=== PATIENT | female | born 1995 | race Hispanic/Latino ===

== ENCOUNTER 2021-07-21 11:06 | Day surgery (SDC) | payer OTHER ==
[2021-07-21] MEDS ORDERED: hydrALAZINE 20 MG/ML VIAL SLOW IVP PRN (12:21)
[2021-07-21 13:33] VITALS: BMI 27.4
[2021-07-21 13:55] LABS: #Eosinphils 0.1 10x3/uL (0.0-0.5); #Monocytes 0.6 10x3/uL (0.0-1.1); #Neutrophils 7.3 10x3/uL (1.5-8.4); %Basophils 0.2 % (0.0-2.0); %Eosinophils 0.8 % (0.0-6.0); %Lymphocytes 16.2 % (18.0-47.0); %Monocytes 6.6 % (0.0-10.0); %Neutrophils 75.8 % (40.0-75.0); Hemoglobin 11.3 g/dL (12.0-15.5); Mean Corpuscular HGB CONC 32.5 g/dL (32.0-36.0); Mean Corpuscular Hemoglobin 26.1 pg (27.0-33.0); Mean Corpuscular Volume 80.4 fl (81.6-98.3); Mean Platelet Volume 10.4 fl (7.4-10.4); Platelet Count 311 10x3/uL (150-450); RBC Distribution Width 13.9 % (11.5-14.5); Red Blood Cell (RBC) Count 4.33 10x6/uL (3.90-5.03); White Blood Cell (WBC) Count 9.6 10x3/uL (3.5-10.5)
[2021-07-21 14:08] LABS: Creatinine, Urine 60.35 mg/dL (47-110); Protein, Urine Random Quant Less than 10 mg/dL (1-14)
[2021-07-21 14:48] LABS: ALT (SGPT) 9 U/L (8-55); AST (SGOT) 15 U/L (5-34); Alkaline Phosphatase 197 U/L (40-110); Anion Gap 11 mmol/L (10-20); BUN (Urea Nitrogen) 11 mg/dL (7.0-18.7); Bilirubin, Total 0.3 mg/dL (0.2-1.2); Calc. Creatinine Clearance 211 mL/min (70-130); Calcium 8.5 mg/dL (7.8-10.44); Carbon Dioxide 21 mmol/L (22-29); Chloride 108 mmol/L (98-107); Globulin 3.3 g/dL (2.4-3.5); Glucose 79 mg/dL (70-105); HIV (1/2) Antibody/Antigen Non-Reactive (NonReactive); HIV 1/2 INDEX 0.09 S/CO (<1.00); Potassium 4.6 mmol/L (3.5-5.1); Protein, Total 6.3 g/dL (6.0-8.3); Sodium 135 mmol/L (136-145); Syphilis Antibody Nonreactive (Nonreactive); Uric Acid 3.4 mg/dL (2.6-6.0)
== END 2021-07-21 15:51 | disposition home or self-care (01) ==
LOC: CSHLD/OP 11:06
PROVIDERS: ATTEND Family Medicine
DX: O99.891 Other specified diseases and conditions complicating pregnancy (principal); R03.0 Elevated blood-pressure reading, without diagnosis of hypertension; O24.410 Gestational diabetes mellitus in pregnancy, diet controlled; O36.8130 Decreased fetal movements, third trimester, not applicable or unspecified; O34.03 Maternal care for unspecified congenital malformation of uterus, third trimester; Q51.3 Bicornate uterus; Z3A.37 37 weeks gestation of pregnancy
CPT/HCPCS: 76819; 80053; 82570; 84156; 84550; 85025; 86780; 87389

== ENCOUNTER 2021-07-23 02:16 | Inpatient (IN) | payer MEDICAID, OTHER ==
[2021-07-23] MEDS ORDERED: hydrALAZINE 20 MG/ML VIAL SLOW IVP PRN (04:12)
[2021-07-23] MEDS ORDERED: Acetaminophen 500 MG TAB PO PRN (04:29)
[2021-07-23] MEDS ORDERED: Ondansetron PF 4 MG/2 ML Vial IVP PRN ×3 (04:29→11:43)
[2021-07-23] MEDS ORDERED: Promethazine HCl 25 MG/ML VIAL IM PRN ×2 (04:29→05:56)
[2021-07-23] MEDS ORDERED: Carboprost 250 MCG/ML AMP IM PRN (04:29)
[2021-07-23] MEDS ORDERED: Methylergonovine 0.2 MG/ML VIAL IM PRN ×2 (04:29→11:43)
[2021-07-23] MEDS ORDERED: Misoprostol 200 MCG TAB PR PRN (04:29)
[2021-07-23] MEDS ORDERED: Lidocaine 1% (PF) 30 ML VIAL SC PRN (04:29)
[2021-07-23] MEDS ORDERED: Ibuprofen 800 MG TAB PO PRN (04:29)
[2021-07-23] MEDS ORDERED: NS w/ Oxytocin 30 units 500 ML IV SCH ×3 (04:30→11:43)
[2021-07-23] MEDS ORDERED: Lactated Ringer's 1,000 ML IV SCH (04:30)
[2021-07-23] MEDS ORDERED: Fentanyl 2 mcg/Bup 0.1% Cadd 100 ML ONE (04:58)
[2021-07-23 05:24] LABS: Hemoglobin 12.2 g/dL (12.0-15.5); Mean Corpuscular HGB CONC 32.4 g/dL (32.0-36.0); Mean Corpuscular Hemoglobin 25.9 pg (27.0-33.0); Mean Platelet Volume 10.2 fl (7.4-10.4); Platelet Count 309 10x3/uL (150-450); RBC Distribution Width 13.7 % (11.5-14.5); Red Blood Cell (RBC) Count 4.71 10x6/uL (3.90-5.03); White Blood Cell (WBC) Count 11.8 10x3/uL (3.5-10.5)
[2021-07-23 05:25] LABS: Syphilis Antibody Nonreactive (Nonreactive); Syphilis Antibody Index 0.11 S/CO (<1.00 Non-Reactive)
[2021-07-23 05:26] LABS: Hep B Surf Ag Non-Reactive S/CO (NonReactive)
[2021-07-23 05:32] VITALS: BMI 31.2
[2021-07-23 05:49] LABS: HBSAg Index 0.17 S/CO (0-0.99)
[2021-07-23] MEDS ORDERED: diphenhydrAMINE 50 MG/ML VIAL IVP PRN (05:56)
[2021-07-23] MEDS ORDERED: ePHEDrine Sulfate 50 MG/10 ML VIAL SLOW IVP PRN (05:56)
[2021-07-23] MEDS ORDERED: Hydrocerin (Eucerin) Cream 120 gm Jar TOP PRN (05:56)
[2021-07-23] MEDS ORDERED: Lactated Ringer's 500 ML IV PRN (05:56)
[2021-07-23] MEDS ORDERED: Naloxone HCl 0.4 mg/ml Vial IVP PRN ×2 (05:56)
[2021-07-23] MEDS ORDERED: Acetaminophen 325 MG TAB PO PRN (05:56)
[2021-07-23] MEDS ORDERED: Communication Order-Pharmacy FS SCH (06:00)
[2021-07-23] MEDS ORDERED: Fentanyl 2 mcg/Bupivacaine 0.1% Cassette 100 ML EPIDURAL SCH (06:00)
[2021-07-23 07:39] LABS: HIV (1/2) Antibody/Antigen Non-Reactive (NonReactive); HIV 1/2 INDEX 0.14 S/CO (<1.00)
[2021-07-23] MEDS ORDERED: Bupivacaine/Epinephrine 0.25% 30 ML VIAL ONE (08:00)
[2021-07-23] MEDS ORDERED: Milk Of Magnesia 30 ML UDCUP PO PRN (11:43)
[2021-07-23] MEDS ORDERED: Bisacodyl 10 MG SUPP PR PRN (11:43)
[2021-07-23] MEDS ORDERED: Boostrix 0.5 ML (Tdap) VIAL IM ONE (11:43)
[2021-07-23] MEDS ORDERED: Benzocaine-Menthol 82.5 ML CAN TOP PRN (11:43)
[2021-07-23] MEDS ORDERED: HYDROcodone/Acetaminophen 5/325 mg Tablet PO PRN (11:43)
[2021-07-23] MEDS ORDERED: Lanolin Ointment 7 GM TUBE TOP PRN (11:43)
[2021-07-23] MEDS ORDERED: Preparation H Ointment 28 GM TUBE PR PRN (11:43)
[2021-07-23] MEDS ORDERED: diphenhydrAMINE 25 MG CAP PO PRN (11:43)
[2021-07-23] MEDS ORDERED: Misoprostol 200 MCG TAB VAG PRN (11:43)
[2021-07-23] MEDS: Docusate 100 MG CAP PO SCH ×2 (13:31→21:16)
[2021-07-23] MEDS: Ferrous Sulfate 325 MG TAB PO SCH ×2 (13:31→16:53)
[2021-07-23] MEDS: Ibuprofen 800 MG TAB PO SCH ×3 (13:31→21:16)
[2021-07-23] MEDS: Prenatal Vitamin 1 TAB PO SCH (13:32)
[2021-07-23 15:30] LABS: SARS-CoV-2 PCR by NAA Not Detected (NotDetected)
[2021-07-24] MEDS: Ibuprofen 800 MG TAB PO SCH ×3 (05:19→20:37)
[2021-07-24] MEDS: Ferrous Sulfate 325 MG TAB PO SCH ×2 (08:34→14:00)
[2021-07-24] MEDS: Docusate 100 MG CAP PO SCH ×2 (08:34→20:37)
[2021-07-24] MEDS: Prenatal Vitamin 1 TAB PO SCH (08:34)
[2021-07-25] MEDS: Ibuprofen 800 MG TAB PO SCH (05:32)
[2021-07-25] MEDS: Ferrous Sulfate 325 MG TAB PO SCH (08:03)
[2021-07-25 09:34] VITALS: BP 124/78; TEMP 97.6
[2021-07-25] MEDS: Docusate 100 MG CAP PO SCH (09:40)
[2021-07-25] MEDS: Prenatal Vitamin 1 TAB PO SCH (09:40)
== END 2021-07-25 13:56 | disposition home or self-care (01) | DRG 807 ==
LOC: CSHLD/OP 02:16 → CSHLD 04:28 → CSHPP 12:00
PROVIDERS: ADMIT Obstetrics & Gynecology; ATTEND Obstetrics & Gynecology
PROC: 10E0XZZ Delivery of Products of Conception, External Approach (ICD-10-PCS; principal; 2021-07-23)
PROC: 3E0334Z Introduction of Serum, Toxoid and Vaccine into Peripheral Vein, Percutaneous Approach (ICD-10-PCS; 2021-07-23)
DX: O24.429 Gestational diabetes mellitus in childbirth, unspecified control (principal); Z37.0 Single live birth; Z3A.38 38 weeks gestation of pregnancy; Z79.899 Other long term (current) drug therapy; Z67.41 Type O blood, Rh negative
CPT/HCPCS: 36415; 36416; 51702; 85027; 85461; 86780; 86850; 86900; 86901; 87340; 87389; 90384; 96372; 99285; J2590; U0003; U0005

== ENCOUNTER 2022-02-23 13:06 | Inpatient (IN) | payer MEDICAID, OTHER, SELFPAY ==
[2022-02-23] MEDS ORDERED: Acetaminophen 325 MG TAB PO PRN (14:17)
[2022-02-23] MEDS ORDERED: Ondansetron ODT 4 MG TAB PO PRN (14:37)
[2022-02-23] MEDS ORDERED: hydrOXYzine 10 MG TAB PO PRN (14:37)
[2022-02-23 14:45] LABS: #Eosinphils 0.1 10x3/uL (0.0-0.5); #Monocytes 0.6 10x3/uL (0.0-1.1); #Neutrophils 6.8 10x3/uL (1.5-8.4); %Basophils 0.2 % (0.0-2.0); %Eosinophils 1.2 % (0.0-6.0); %Lymphocytes 17.1 % (18.0-47.0); %Monocytes 6.5 % (0.0-10.0); %Neutrophils 74.8 % (40.0-75.0); Mean Corpuscular Hemoglobin 26.2 pg (27.0-33.0); Mean Corpuscular Volume 77.1 fl (81.6-98.3); Mean Platelet Volume 10.1 fl (7.4-10.4); Platelet Count 273 10x3/uL (150-450); RBC Distribution Width 14.4 % (11.5-14.5); Red Blood Cell (RBC) Count 4.58 10x6/uL (3.90-5.03); White Blood Cell (WBC) Count 9.1 10x3/uL (3.5-10.5)
[2022-02-23 14:50] VITALS: BMI 26.2
[2022-02-23 15:02] LABS: ALT (SGPT) 13 U/L (8-55); AST (SGOT) 13 U/L (5-34); Albumin 3.3 g/dL (3.5-5.0); Alkaline Phosphatase 201 U/L (40-110); Anion Gap 11 mmol/L (10-20); BUN (Urea Nitrogen) 5 mg/dL (7.0-18.7); Bilirubin, Total 0.3 mg/dL (0.2-1.2); Calc. Creatinine Clearance 200 mL/min (70-130); Calcium 8.5 mg/dL (7.8-10.44); Carbon Dioxide 24 mmol/L (22-29); Chloride 106 mmol/L (98-107); Estimated GFR 137; Globulin 3.2 g/dL (2.4-3.5); Glucose 93 mg/dL (70-105); Potassium 4.2 mmol/L (3.5-5.1); Protein, Total 6.5 g/dL (6.0-8.3); Sodium 137 mmol/L (136-145)
[2022-02-23 15:32] LABS: Magnesium 1.6 mg/dL (1.6-2.6)
[2022-02-23 15:37] LABS: Troponin I Less than 0.010 ng/mL (< 0.028)
[2022-02-23 15:50] LABS: Free T4 (Free Thyroxine) 2.82 ng/dL (0.70-1.48); Thyroid Stimulating Hormone Less than 0.0025 uIU/mL (0.35-4.94)
[2022-02-23] MEDS ORDERED: Magnesium Oxide 400 MG TAB PO SCH (17:30)
[2022-02-23 17:48] LABS: Creatinine, Urine 60.2 mg/dL (47-110)
[2022-02-23 19:27] LABS: Amphetamine Not Detected (NotDetected); Barbiturates Screen Not Detected (NotDetected); Benzodiazepine Screen Not Detected (NotDetected); Cocaine Metabolite Screen Not Detected (NotDetected); Methadone Not Detected (NotDetected); Methamphetamine Not Detected (NotDetected); Opiate Screen Not Detected (NotDetected); Oxycodone Screen Not Detected (NotDetected); Phencyclidine (PCP) Not Detected (NotDetected); THC/Cannabinoid Screen Not Detected (NotDetected); Tricyclic Screen Not Detected (NotDetected)
[2022-02-23] MEDS: Methimazole 5 MG TAB PO SCH (20:51)
[2022-02-23] MEDS ORDERED: Metoprolol Tartrate 25 MG TAB PO SCH (23:59)
[2022-02-24] MEDS ORDERED: Metoprolol Tartrate 25 MG TAB PO SCH (00:15)
[2022-02-24 04:28] LABS: T4 28.7 ug/dL (4.87-11.72)
[2022-02-24] MEDS ORDERED: hydrOXYzine 25 MG TAB PO PRN ×2 (06:15)
[2022-02-24] MEDS ORDERED: Magnesium Oxide 400 MG TAB PO SCH (09:00)
[2022-02-24] MEDS: Prenatal Vitamin 1 TAB PO SCH (09:03)
[2022-02-24] MEDS: Aspirin 81 mg Enteric Coated Tablet PO SCH (09:03)
[2022-02-24] MEDS: Methimazole 5 MG TAB PO SCH (09:03)
[2022-02-24] MEDS ORDERED: Methimazole 5 MG TAB PO SCH (10:30)
[2022-02-24] MEDS ORDERED: hydrOXYzine 25 MG TAB PO SCH (10:30)
[2022-02-24 11:35] LABS: Bilirubin Neg (Negative); Blood, Urine 10 (Negative); Clarity Clear (Clear); Glucose, Urine (Dipstick) Normal (Negative); Ketone, Urine Negative (Negative); Leukocyte Negative (Negative); Nitrite Negative (Negative); Protein, Urine (Dipstick) Negative (Neg-Trace); Specific Gravity, Urine 1.015 (1.002-1.036); Urobilinogen Normal mg/dL (Less than 2); pH, Urine 6.5 (5.0-9.0)
[2022-02-24 11:42] LABS: Bacteria/HPF None Seen HPF (None Seen); RBC/HPF 0-3 HPF (0-3); Squamous Epithelial 0-3 HPF (0-3); Urine Culture Reflex No No; WBC/HPF 0-3 HPF (0-3)
[2022-02-24 11:44] LABS: Anion Gap 11 mmol/L (10-20); BUN (Urea Nitrogen) 6 mg/dL (7.0-18.7); Calc. Creatinine Clearance 204 mL/min (70-130); Calcium 9.1 mg/dL (7.8-10.44); Carbon Dioxide 24 mmol/L (22-29); Chloride 105 mmol/L (98-107); Estimated GFR 138; Glucose 115 mg/dL (70-105); Magnesium 1.5 mg/dL (1.6-2.6); Potassium 3.9 mmol/L (3.5-5.1); Sodium 136 mmol/L (136-145)
[2022-02-24] MEDS ORDERED: Lorazepam 2 MG/ML VIAL SLOW IVP SCH (13:30)
[2022-02-24] MEDS: Magnesium Oxide 400 MG TAB PO SCH ×2 (13:48→20:49)
[2022-02-24 18:49] LABS: Hemoglobin A1c 4.9 % (4.0-6.0)
[2022-02-24] MEDS ORDERED: Labetalol HCl 100 MG/20 ML VIAL SLOW IVP SCH (19:00)
[2022-02-24] MEDS ORDERED: Metoprolol Tartrate 50 MG TAB PO SCH (21:00)
[2022-02-25 05:08] LABS: Magnesium 1.6 mg/dL (1.6-2.6)
[2022-02-25] MEDS: Aspirin 81 mg Enteric Coated Tablet PO SCH (08:53)
[2022-02-25] MEDS: Prenatal Vitamin 1 TAB PO SCH (08:55)
[2022-02-25] MEDS ORDERED: Methimazole 5 MG TAB PO SCH (09:00)
[2022-02-25] MEDS ORDERED: Magnesium Oxide 400 MG TAB PO SCH ×2 (11:00→21:00)
[2022-02-25 13:00] VITALS: BP 128/76; TEMP 98.1
[2022-02-25] MEDS ORDERED: ALPRAZolam 0.25 MG TAB PO SCH (14:30)
== END 2022-02-25 16:15 | disposition home or self-care (01) | DRG 833 ==
LOC: CSHLD/OP 13:06 → CSHTELE 13:16
PROVIDERS: ADMIT Obstetrics & Gynecology; ATTEND Obstetrics & Gynecology
DX: O99.282 Endocrine, nutritional and metabolic diseases complicating pregnancy, second trimester (principal); Z3A.19 19 weeks gestation of pregnancy; E05.00 Thyrotoxicosis with diffuse goiter without thyrotoxic crisis or storm; O26.892 Other specified pregnancy related conditions, second trimester; Z67.41 Type O blood, Rh negative; Q51.28 Other and unspecified doubling of uterus; O99.891 Other specified diseases and conditions complicating pregnancy; E83.42 Hypomagnesemia; F41.9 Anxiety disorder, unspecified; R25.1 Tremor, unspecified; O99.342 Other mental disorders complicating pregnancy, second trimester; Z20.822 Contact with and (suspected) exposure to COVID-19
CPT/HCPCS: 36415; 76536; 76805; 80048; 80053; 80306; 81001; 82570; 83036; 83735; 83880; 84156; 84238; 84436; 84439; 84443; 84445; 84484; 85025; 86376; 86800; 93005; 93010; 94760; J2060; U0003; U0005

== ENCOUNTER 2022-04-10 11:23 | Day surgery (SDC) | payer MEDICAID ==
[2022-04-10] MEDS ORDERED: hydrALAZINE 20 MG/ML VIAL SLOW IVP PRN (13:17)
[2022-04-10 14:12] LABS: SARS-CoV-2 NAA Rapid Test Not Detected (NotDetected)
[2022-04-10 14:58] LABS: #Eosinphils 0.1 10x3/uL (0.0-0.5); #Monocytes 0.7 10x3/uL (0.0-1.1); #Neutrophils 8.5 10x3/uL (1.5-8.4); %Basophils 0.2 % (0.0-2.0); %Eosinophils 0.9 % (0.0-6.0); %Lymphocytes 12.8 % (18.0-47.0); %Monocytes 6.6 % (0.0-10.0); %Neutrophils 79.3 % (40.0-75.0); Hemoglobin 11.5 g/dL (12.0-15.5); Mean Corpuscular HGB CONC 33.9 g/dL (32.0-36.0); Mean Corpuscular Hemoglobin 26.7 pg (27.0-33.0); Mean Corpuscular Volume 78.7 fl (81.6-98.3); Platelet Count 296 10x3/uL (150-450); RBC Distribution Width 13.6 % (11.5-14.5); Red Blood Cell (RBC) Count 4.31 10x6/uL (3.90-5.03); White Blood Cell (WBC) Count 10.7 10x3/uL (3.5-10.5)
[2022-04-10 15:14] LABS: ALT (SGPT) 9 U/L (8-55); AST (SGOT) 12 U/L (5-34); Albumin 3.2 g/dL (3.5-5.0); Alkaline Phosphatase 192 U/L (40-110); Anion Gap 11 mmol/L (10-20); BUN (Urea Nitrogen) 4 mg/dL (7.0-18.7); Bilirubin, Total 0.3 mg/dL (0.2-1.2); Calc. Creatinine Clearance 0 mL/min (70-130); Calcium 8.6 mg/dL (7.8-10.44); Carbon Dioxide 22 mmol/L (22-29); Chloride 106 mmol/L (98-107); Estimated GFR 141; Globulin 3.4 g/dL (2.4-3.5); Glucose 76 mg/dL (70-105); Magnesium 1.5 mg/dL (1.6-2.6); Potassium 3.7 mmol/L (3.5-5.1); Protein, Total 6.6 g/dL (6.0-8.3); Sodium 135 mmol/L (136-145)
== END 2022-04-10 15:30 | disposition home or self-care (01) ==
LOC: CSHLD/OP 11:23
PROVIDERS: ATTEND Student in an Organized Health Care Education/Training Program
DX: O13.2 Gestational [pregnancy-induced] hypertension without significant proteinuria, second trimester (principal); O99.282 Endocrine, nutritional and metabolic diseases complicating pregnancy, second trimester; E05.00 Thyrotoxicosis with diffuse goiter without thyrotoxic crisis or storm; Z20.822 Contact with and (suspected) exposure to COVID-19; O98.512 Other viral diseases complicating pregnancy, second trimester; B34.9 Viral infection, unspecified; Z79.82 Long term (current) use of aspirin; Z79.899 Other long term (current) drug therapy; Z3A.26 26 weeks gestation of pregnancy
CPT/HCPCS: 80053; 83735; 83880; 84484; 85025; 87070; 87081; 87430; 93005; 93010; 99284

== ENCOUNTER 2022-12-08 22:02 | Emergency (ER) | payer SELFPAY ==
[2022-12-08 22:34] LABS: Bilirubin Neg (Negative); Blood, Urine 150 (Negative); Clarity Clear (Clear); Glucose, Urine (Dipstick) Normal (Negative); Ketone, Urine Negative (Negative); Leukocyte 500 (Negative); Nitrite Positive (Negative); Protein, Urine (Dipstick) 100 mg/dl (Neg-Trace); Specific Gravity, Urine 1.015 (1.005-1.030); Urobilinogen Normal mg/dL (Less than 2); pH, Urine 6.5 (5.0-9.0)
[2022-12-08 22:38] LABS: Pregnancy Test - Urine (BHCG) Negative (Negative); Pregu Control Background? CLEAR/WHITE (CLR/WHITE); Pregu Control Bar Appear? YES (CONTROL BAR); Specific Gravity 1.015 (1.002-1.036)
[2022-12-08 22:46] LABS: Bacteria/HPF 3+ HPF (None Seen); CAUTI Indications for Culture Pelvic or flank pain; Renal Epithelial 0-3 HPF (None Seen); WBC/HPF 21-50 HPF (0-3)
[2022-12-08 22:47] LABS: Urine Culture Reflex Yes Yes
[2022-12-08 23:00] LABS: ALT (SGPT) 25 U/L (8-55); AST (SGOT) 15 U/L (5-34); Albumin 3.8 g/dL (3.5-5.0); Alkaline Phosphatase 171 U/L (40-110); Anion Gap 12 mmol/L (10-20); BUN (Urea Nitrogen) 7 mg/dL (7.0-18.7); Bilirubin, Total 0.3 mg/dL (0.2-1.2); Calc. Creatinine Clearance 0 mL/min (70-130); Calcium 8.9 mg/dL (7.8-10.44); Carbon Dioxide 23 mmol/L (22-29); Chloride 108 mmol/L (98-107); Estimated GFR 123; Globulin 3.4 g/dL (2.4-3.5); Glucose 118 mg/dL (70-105); Potassium 4.3 mmol/L (3.5-5.1); Protein, Total 7.2 g/dL (6.0-8.3); Sodium 139 mmol/L (136-145)
[2022-12-08 23:03] LABS: #Eosinphils 0.1 10x3/uL (0.0-0.5); #Monocytes 0.7 10x3/uL (0.0-1.1); #Neutrophils 5.1 10x3/uL (1.5-8.4); %Basophils 0.2 % (0.0-2.0); %Eosinophils 1.5 % (0.0-6.0); %Lymphocytes 27.4 % (18.0-47.0); %Monocytes 8.2 % (0.0-10.0); %Neutrophils 62.6 % (40.0-75.0); Hemoglobin 12.8 g/dL (12.0-15.5); Mean Corpuscular HGB CONC 34.6 g/dL (32.0-36.0); Mean Corpuscular Hemoglobin 26.2 pg (27.0-33.0); Mean Corpuscular Volume 75.7 fl (81.6-98.3); Mean Platelet Volume 10.1 fl (7.4-10.4); Platelet Count 332 10x3/uL (150-450); RBC Distribution Width 11.4 % (11.5-14.5); Red Blood Cell (RBC) Count 4.89 10x6/uL (3.90-5.03); White Blood Cell (WBC) Count 8.2 10x3/uL (3.5-10.5)
[2022-12-08] MEDS ORDERED: Ondansetron PF 4 MG/2 ML Vial ONE (23:04)
[2022-12-08] MEDS ORDERED: Ketorolac Tromethamine 30 MG/ML VIAL ONE (23:05)
== END 2022-12-09 01:17 | disposition home or self-care (01) ==
LOC: CSHERS 22:02
DX: R10.11 Right upper quadrant pain (principal); R82.71 Bacteriuria; E05.90 Thyrotoxicosis, unspecified without thyrotoxic crisis or storm; I10 Essential (primary) hypertension; Z79.899 Other long term (current) drug therapy
CPT/HCPCS: 76705; 80053; 81001; 81025; 85025; 87077; 87086; 87186; 94760; 96374; 96375; J1885; J2405

== ENCOUNTER 2023-11-20 17:04 | Emergency (ER) | payer SELFPAY ==
[2023-11-20] MEDS ORDERED: Ketorolac Tromethamine 30 MG (1 mL) VIAL ONE (17:24)
[2023-11-20] MEDS ORDERED: Acetaminophen 500 MG TAB ONE (17:24)
[2023-11-20 18:35] LABS: Bilirubin Neg (Negative); Blood, Urine 10 (Negative); Clarity Clear (Clear); Glucose, Urine (Dipstick) Normal (Negative); Ketone, Urine Negative (Negative); Leukocyte Negative (Negative); Nitrite Negative (Negative); Protein, Urine (Dipstick) Negative (Neg-Trace); Urobilinogen Normal mg/dL (Less than 2)
[2023-11-20 18:37] LABS: Pregnancy Test - Urine (BHCG) Negative (Negative); Pregu Control Background? CLEAR/WHITE (CLR/WHITE); Pregu Control Bar Appear? YES (CONTROL BAR)
[2023-11-20 18:51] LABS: Bacteria/HPF 3+ HPF (None Seen); CAUTI Indications for Culture Pelvic or flank pain; Calcium Oxalate Crystals 3+ HPF (None Seen); RBC/HPF 0-3 HPF (0-3); Squamous Epithelial 0-3 HPF (0-3); Urine Culture Reflex No No; WBC/HPF 0-3 HPF (0-3)
[2023-11-20 19:22] LABS: #Basophils 0.04 10x3/uL (0.0-0.2); #Eosinphils 0.15 10x3/uL (0.0-0.5); #Monocytes 0.42 10x3/uL (0.0-1.1); #Neutrophils 2.65 10x3/uL (1.5-8.4); %Basophils 0.7 % (0.0-2.0); %Eosinophils 2.8 % (0.0-6.0); %Lymphocytes 39.9 % (18.0-47.0); %Monocytes 7.7 % (0.0-10.0); %Neutrophils 48.7 % (40.0-75.0); Hematocrit 37.6 % (34.9-44.5); Hemoglobin 13.4 g/dL (12.0-15.5); Mean Corpuscular HGB CONC 35.6 g/dL (32.0-36.0); Mean Corpuscular Volume 78.7 fl (81.6-98.3); Mean Platelet Volume 9.5 fl (7.4-10.4); Platelet Count 284 10x3/uL (150-450); Red Blood Cell (RBC) Count 4.78 10x6/uL (3.90-5.03); White Blood Cell (WBC) Count 5.4 10x3/uL (3.5-10.5)
[2023-11-20 19:33] LABS: ALT (SGPT) 14 U/L (8-55); AST (SGOT) 12 U/L (5-34); Albumin 3.4 g/dL (3.5-5.0); Alkaline Phosphatase 274 U/L (40-110); Anion Gap 10 mmol/L (10-20); BUN (Urea Nitrogen) 7 mg/dL (7.0-18.7); Bilirubin, Total 0.2 mg/dL (0.2-1.2); Calc. Creatinine Clearance 0 mL/min (70-130); Calcium 8.9 mg/dL (7.8-10.44); Carbon Dioxide 25 mmol/L (22-29); Chloride 108 mmol/L (98-107); Estimated GFR 125; Globulin 3.7 g/dL (2.4-3.5); Glucose 102 mg/dL (70-105); Protein, Total 7.1 g/dL (6.0-8.3); Sodium 139 mmol/L (136-145)
== END 2023-11-20 20:45 | disposition home or self-care (01) ==
LOC: CSHERS 17:04
DX: M54.50 Low back pain, unspecified (principal); I10 Essential (primary) hypertension
CPT/HCPCS: 36415; 74176; 80053; 81001; 81025; 85025; 96372; J1885